=== PATIENT | male | born 1965 | race Hispanic/Latino ===

== ENCOUNTER 2017-09-22 15:16 | Emergency (ER) | payer OTHER | END 2017-09-22 15:54 | disposition home or self-care (01) | LOC: EDH 15:16 | DX: S29.011A Strain of muscle and tendon of front wall of thorax, initial encounter (principal); I10 Essential (primary) hypertension; E11.9 Type 2 diabetes mellitus without complications; Z72.0 Tobacco use; Z98.890 Other specified postprocedural states; V49.59XA Passenger injured in collision with other motor vehicles in traffic accident, initial encounter; Y93.89 Activity, other specified; Y92.89 Other specified places as the place of occurrence of the external cause; Y99.8 Other external cause status ==

== ENCOUNTER 2018-02-13 01:45 | Emergency (ER) | payer OTHER ==
[2018-02-13] MEDS ORDERED: SODIUM CHLORIDE 0.9% 1000ML 1,000 ML IV ONE (01:56)
[2018-02-13] MEDS ORDERED: ONDANSETRON HCL 4 MG/2 ML VIAL ONE (01:56)
[2018-02-13 02:00] LABS: BASOPHILS % (AUTO) 0.7 % (0.0-5.0); EOSINOPHILS % (AUTO) 2.2 % (0.0-8.0); HEMATOCRIT 37.4 % (42-54); LYMPHOCYTES % (AUTO) 21.7 % (21.0-51.0); MEAN CORPUSCULAR HEMOGLOBIN 29.8 pg (27.0-33.0); MEAN CORPUSCULAR HGB CONC 35.2 g/dL (32.0-36.0); MEAN CORPUSCULAR VOLUME 84.7 fL (79-99); MONOCYTES % (AUTO) 8.8 % (3.0-13.0); NEUTROPHILS % (AUTO) 66.6 % (40.0-77.0); PLATELET COUNT (AUTO) 427 K/uL (130-400); RED BLOOD CELL COUNT(AUTO) 4.41 MIL/uL (4.50-6.20); RED CELL DISTRIBUTION WIDTH 13.2 % (11.0-15.5); WHITE BLOOD COUNT (AUTO) 13.6 K/uL (4.8-10.8)
[2018-02-13 02:12] LABS: PARTIAL THROMBOPLASTIN TIME 29.6 SEC (26.3-35.5); PROTHROMBIN TIME 10.5 SEC (9.6-11.6)
[2018-02-13 02:17] LABS: ALBUMIN 3.8 g/dL (3.5-5.0); BILIRUBIN,TOTAL 0.5 mg/dL (0.2-1.0); TOTAL PROTEIN, SERUM 7.9 g/dL (6.0-8.3)
[2018-02-13 02:19] LABS: POTASSIUM 2.6 mmol/L (3.5-5.1)
[2018-02-13] MEDS ORDERED: POTASSIUM CHLORIDE 20MEQ/100ML 100 ML IV ONE (02:42)
[2018-02-13] MEDS ORDERED: THIAMINE HCL 100 MG/ML 2ML VIAL ONE (02:53)
[2018-02-13 03:14] LABS: AMPHET/METH SCREEN,URINE NEGATIVE (NEGATIVE); BARBITURATE SCREEN, URINE NEGATIVE (NEGATIVE); BENZODIAZEPINES SCREEN,URINE NEGATIVE (NEGATIVE); CANNABINOID SCREEN,URINE NEGATIVE (NEGATIVE); COCAINE SCREEN,URINE NEGATIVE (NEGATIVE); OPIATE SCREEN,URINE NEGATIVE (NEGATIVE); PHENCYCLIDINE SCREEN,URINE NEGATIVE (NEGATIVE)
[2018-02-13] MEDS ORDERED: MAGNESIUM OXIDE 400 MG TABLET PO ONE (04:20)
== END 2018-02-13 04:29 | disposition home or self-care (01) ==
LOC: EDH 01:45
DX: F10.129 Alcohol abuse with intoxication, unspecified (principal); E87.6 Hypokalemia; E83.42 Hypomagnesemia; F14.10 Cocaine abuse, uncomplicated; I10 Essential (primary) hypertension; E11.40 Type 2 diabetes mellitus with diabetic neuropathy, unspecified
CPT/HCPCS: 36415; 70450; 71045; 72125; 72170; 80053; 80305; 82550; 83735; 84484; 85025; 85610; 85730; 93005; 96361; 96365; 96368; 96375; 99285; G0480; J2405; J3411; J3480; J7030

== ENCOUNTER 2019-10-05 19:47 | Emergency (ER) | payer OTHER ==
[2019-10-05] MEDS ORDERED: ACETAMINOPHEN EXTRA STRENGTH 500 MG TABLET ONE (19:59)
[2019-10-05] MEDS ORDERED: CEFTRIAXONE SODIUM 1 GM ONE (21:58)
[2019-10-05] MEDS ORDERED: AZITHROMYCIN 500MG+NS 250ML 250 ML IV ONE (21:58)
== END 2019-10-06 00:30 | disposition left against medical advice (07) ==
LOC: EDH 19:47
DX: U07.1 COVID-19 (principal); R19.7 Diarrhea, unspecified; R05 Cough
CPT/HCPCS: 36415; 71045; 80053; 81001; 82550; 83605; 83615; 83874; 83880; 84145; 84484; 85025; 85610; 85730; 87040 ×2; 87088; 87804 ×2; 87880; 93005; 96365; 96366; 96375; 99285; J0456; J0696; U0003

== ENCOUNTER → 2023-12-21 | Outpatient (CLI) | payer OTHER ==
[~2023-12-21] MED LIST: ALOG12.52 PO; AMLO-258 PO; ATOR10 PO; CARV12.580 PO; FOSI40TA71 PO; FURO40TA7 PO; Folic Acid/Vitamin B Comp W-C PO; GLIP10TA9 PO; IPRA3AMP24 IH
== END | disposition home or self-care (01) ==
LOC: RAH 14:33
PROVIDERS: ATTEND Student in an Organized Health Care Education/Training Program
DX: N18.5 Chronic kidney disease, stage 5 (principal); Z88.8 Allergy status to other drugs, medicaments and biological substances
CPT/HCPCS: 93970

== ENCOUNTER → 2024-11-26 | Outpatient (CLI) | payer OTHER ==
[~2024-11-26] MED LIST changes: -ALOG12.52 PO; -ATOR10 PO; -CARV12.580 PO; +CARV25TA PO; +FOLI0.8T53 PO; -FURO40TA7 PO; -Folic Acid/Vitamin B Comp W-C PO; -GLIP10TA9 PO; -IPRA3AMP24 IH
[2024-11-26 10:29] LABS: IMMATURE GRANULOCYTE ABSOLUTE 0.01 K/uL (0-1); NUCLEATED RED BLOOD CELLS 0.0 % (0.0-0.19); PLATELET COUNT (AUTO) 153 K/uL (130-400); RED BLOOD CELL COUNT(AUTO) 3.49 MIL/uL (4.50-6.20); RED CELL DISTRIBUTION WIDTH 15.8 % (11.0-15.5); WHITE BLOOD COUNT (AUTO) 6.8 K/uL (4.8-10.8)
[2024-11-26 10:39] LABS: ASPARTATE AMINOTRANSFERASE 15.0 U/L (10-37); CREATININE 6.0 mg/dL (0.5-1.3); GLOMERULAR FILTR. RATE CALC 10.0 mL/min (>90); GLUCOSE,RANDOM 79.0 mg/dL (70-105); SODIUM SERUM 136.0 mmol/L (136-145); TOTAL PROTEIN, SERUM 6.9 g/dL (6.0-8.3); UREA NITROGEN, BLOOD 37.0 mg/dL (7-18)
[2024-11-26 10:49] LABS: INR 1.14 (0.85-1.15)
--- NOTE | 2024-11-26 11:30 | NUR ---
ULTRASOUND GUIDED PARACENTESIS PROCEDURE PERFORMED BY DR. IVON ANTON. PUNCTURE SITE RLQ AND PATIENT TOLERATED PROCEDURE WELL. TOTAL REMOVED 9.0 LITERS OF CLEAR, YELLOW ASCITES FLUID. PATIENT REFUSED ALBUMIN 25% TO BE GIVEN DURING PROCEDURE. SPECIMEN SENT TO LAB. END OF PROCEDURE AT 1115. CATHETER REMOVED AND DRESSING APPLIED- NO BLEEDING NOTED. DISCHARGE INSTRUCTIONS GIVEN TO PATIENT AND VERBALIZED UNDERSTANDING. DISCHARGED VIA AMBULATORY. PATIENT IS ALERT AND ORIENTED AND STATES NO C/O PAIN.
--- NOTE | 2024-11-26 15:01 | HMCIMG ---
US ABDOMINAL PARACENTESIS IR REASON: ASCITES TECHNIQUE: Paracentesis was performed with ultrasound guidance. The puncture site was selected in the Right lower quadrant and overlying skin prepped and draped in a sterile fashion. 1% Xylocaine infiltration was performed. Catheter was placed in the fluid using trocar technique. 9.0 L were removed. Fluid sample was submitted for laboratory evaluation. The patient showed no evidence of complication during the procedure. Patient tolerated procedure well. IMPRESSION: 1. Ultrasound-guided paracentesis.
[2024-11-26 16:15] LABS: ALBUMIN,BODY FLUID 2.1 g/dL; TOTAL PROTEIN,BODY FLUID 4.3 g/dL
[2024-11-26 16:22] LABS: BODY FLUID RBC 292 /cu. mm.; BODY FLUID WBC 335 /cu. mm.
[2024-11-26 16:23] LABS: APPEARANCE BODY FLUID SLIGHTLY CLOUDY (CLEAR); COLOR,BODY FLUID YELLOW (LT YELLOW); SPECIMENTYPE,BODY FLUID ASCITES; TOTAL VOLUME,BODY FLUID 9000 mL
[2024-11-26 17:42] LABS: BF LYMPHOCYTE 2 %; BF MACROPHAGE 19; BF MONOCYTE 1 %; BF NEUTROPHIL 60.0 %; BF OTHER CELLS 18; BF TOTAL CELLS COUNTED 100
== END | disposition home or self-care (01) ==
LOC: RAH 09:06
PROVIDERS: ATTEND Internal Medicine Gastroenterology
DX: R18.8 Other ascites (principal); E78.2 Mixed hyperlipidemia; I12.9 Hypertensive chronic kidney disease with stage 1 through stage 4 chronic kidney disease, or unspecified chronic kidney disease; E11.22 Type 2 diabetes mellitus with diabetic chronic kidney disease; N18.6 End stage renal disease; Z98.41 Cataract extraction status, right eye; Z79.899 Other long term (current) drug therapy
CPT/HCPCS: 49083; 84157; 80053; 85025; 89051; 85610; 85730; 87071; 87205; 82042; 36415; 88108; 88305; C1729